=== PATIENT | female | born 1960 | race Caucasian/White ===

== ENCOUNTER → 2016-10-11 | Outpatient (CLI) | payer BC ==
--- NOTE | 2016-10-14 13:08 | MM ---
Reason for exam: screening (asymptomatic). Last mammogram was performed 1 year and 2 months ago. History: Patient is postmenopausal. Right US Cyst Aspiration of the right breast, May 15, 2010. Excisional biopsy of the left breast, 1999. Physical Findings: A clinical breast exam by your physician is recommended on an annual basis and results should be correlated with mammographic findings. MG Screening Mammo w CAD Bilateral CC and MLO view(s) were taken. Prior study comparison: August 18, 2015, right breast MG 3d work up w/cad RT. August 04, 2015, bilateral MG screening mammo w CAD. July 22, 2014, mammogram, performed at [facility]. The breast tissue is heterogeneously dense. This may lower the sensitivity of mammography. Finding: There is a typically benign stable 8mm equal density (isodense), round mass in the right breast. There is a new 6mm round density 12 o'clock, 6cm from nipple. May have been present 07/22/14. New finding since July 22, 2014, August 18, 2015, and August 04, 2015. ASSESSMENT: Incomplete: need additional imaging evaluation, BI-RAD 0 RECOMMENDATION: Special view mammogram of the right breast. [facility] will attempt to contact patient to return for supplemental views.
== END | disposition home or self-care (01) ==
LOC: RADMAMWWP 14:52
PROVIDERS: ATTEND Family Medicine
DX: Z12.31 Encounter for screening mammogram for malignant neoplasm of breast (principal); R92.2 Inconclusive mammogram

== ENCOUNTER → 2016-10-18 | Outpatient (CLI) | payer BC ==
--- NOTE | 2016-10-21 08:27 | MM ---
Reason for exam: additional evaluation requested from abnormal screening. Last mammogram was performed less than 1 month ago. History: Patient is postmenopausal. Right US Cyst Aspiration of the right breast, May 15, 2010. Excisional biopsy of the left breast, 1999. Physical Findings: Nurse did not find any significant physical abnormalities on exam. MG 3D Work Up W/Cad RT LM and spot compression CC view(s) were taken of the right breast. Prior study comparison: October 11, 2016, bilateral MG screening mammo w CAD. August 18, 2015, right breast MG 3d work up w/cad RT. There are scattered fibroglandular densities. Finding: There is a 11 mm equal density (isodense), oval mass in the 10 o'clock position of the right breast. No significant changes in finding since 2012. These results were verbally communicated with the patient and result sheet given to the patient on 10/18/16. ASSESSMENT: Incomplete: need additional imaging evaluation, BI-RAD 0 RECOMMENDATION: Ultrasound of the right breast.
--- NOTE | 2016-10-21 08:28 | USB ---
Reason for exam: additional evaluation requested from abnormal screening. History: Patient is postmenopausal. Right US Cyst Aspiration of the right breast, May 15, 2010. Excisional biopsy of the left breast, 1999. US Breast Workup Limited RT Right breast ultrasound demonstrates a 1.0 x 0.5 x 1.0cm oval, hypoechoic lesion at 10 o'clock. These results were verbally communicated with the patient and result sheet given to the patient on 10/18/16. ASSESSMENT: Probably benign, BI-RAD 3 RECOMMENDATION: Ultrasound of the right breast in 6 months.
== END | disposition home or self-care (01) ==
LOC: RADMAMWWP 13:53
PROVIDERS: ATTEND Family Medicine
DX: R92.8 Other abnormal and inconclusive findings on diagnostic imaging of breast (principal)
CPT/HCPCS: 76642; G0206; G0279

== ENCOUNTER → 2017-05-16 | Day surgery (SDC) | payer BC ==
[2017-05-16 10:48] VITALS: RESP 15; TEMP 98.4; BMI 23.3
[2017-05-16 12:48] VITALS: BP 131/83; PULSE 60
--- NOTE | 2017-05-16 13:00 | USB ---
EXAMINATION TYPE: US biopsy breast VAD RT DATE OF EXAM: 05/16/2017 CLINICAL HISTORY: R92.8 Abnormal Mammogram. Abnormal ultrasound. TECHNIQUE: Ultrasound guided core biopsy of right breast. COMPARISON: 05/02/2017 FINDINGS: The procedure of ultrasound guided core biopsy was explained to the patient. Benefits, alternatives, and risks were discussed. An informed consent was then obtained. A timeout was performed. The patient was placed in supine positioning for imaging and for the procedure. The overlying skin was prepped and draped in usual sterile fashion. Lidocaine was used as anesthetic into the skin and subcutaneous tissue up to area of concern in the right breast. A merle was made with surgical scalpel. Under ultrasound guidance, a 12-gauge vacuum assisted biopsy gun device was used to obtain 6 core samples. Following this, a biopsy clip was left in lesion. The patient tolerated the procedure well without any immediate complication. The patient was kept in the radiology department for short stay after the procedure and then discharged home in stable condition. Post procedure mammogram ordered by the physician was performed. IMPRESSION: Successful, uncomplicated ultrasound guided core biopsy of area of concern in the right breast. Recommendations: 1. Recommendations are pending pathology results. Pathology Results: Benign BREAST, RIGHT, ULTRASOUND GUIDED CORE BIOPSY: FIBROCYSTIC CHANGE (FIBROSIS, CYST FORMATION, AND DUCT HYPERPLASIA). Recommendation Follow up ultrasound of the right breast. [facility]
--- NOTE | 2017-05-16 13:40 | MM ---
Reason for exam: additional evaluation requested from abnormal screening. Last mammogram was performed 7 months ago. History: Patient is postmenopausal. Right US Cyst Aspiration of the right breast, May 15, 2010. Excisional biopsy of the left breast, 1999. MG Diagnostic Mammo RT Wo CAD CC and MLO view(s) were taken of the right breast. Prior study comparison: October 18, 2016, right breast MG 3d work up w/cad RT. October 11, 2016, bilateral MG screening mammo w CAD. ASSESSMENT: Post procedure mammogram for marker placement RECOMMENDATION: Ultrasound of the right breast in 6 months. PENDING PATHOLOGY RESULTS.
== END ==
LOC: RADUSWWP 10:21
PROVIDERS: ATTEND Surgery
DX: N60.31 Fibrosclerosis of right breast (principal); N60.01 Solitary cyst of right breast; R92.8 Other abnormal and inconclusive findings on diagnostic imaging of breast; Z88.0 Allergy status to penicillin; Z88.2 Allergy status to sulfonamides
CPT/HCPCS: 88305; 19083; G0206; A4648; J2001

== ENCOUNTER → 2017-11-28 | Outpatient (CLI) | payer BC ==
--- NOTE | 2017-12-02 10:36 | USB ---
Reason for exam: follow-up at short interval from prior study. History: Patient is postmenopausal. Benign US biopsy breast VAD RT of the right breast, May 16, 2017. Right US Cyst Aspiration of the right breast, May 15, 2010. Excisional biopsy of the left breast, 1999. Physical Findings: Nurse did not find any significant physical abnormalities on exam. US Breast RT Right complete breast ultrasound includes all four quadrants, the retroareolar region and axilla. Finding demonstrates a 0.3 x 0.3 x 0.3cm mixed, stable lesion at 12 o'clock, a 1.1 x 0.5 x 1.0cm hypoechoic, stable lesion at 10 o'clock and a 0.3 x 0.2 x 0.4cm hypoechoic, stable lesion at 10 o'clock. These results were verbally communicated with the patient and result sheet given to the patient on 11/28/17. ASSESSMENT: Benign, BI-RAD 2 RECOMMENDATION: Routine screening mammogram of both breasts in 6 months.
== END | disposition home or self-care (01) ==
LOC: RADUSWWP 09:51
PROVIDERS: ATTEND Family Medicine
DX: R92.8 Other abnormal and inconclusive findings on diagnostic imaging of breast (principal)

== ENCOUNTER → 2018-05-22 | Outpatient (CLI) | payer BC ==
--- NOTE | 2018-05-25 07:01 | MM ---
Reason for exam: screening (asymptomatic). Last mammogram was performed 1 year ago. History: Patient is postmenopausal. Benign US biopsy breast VAD RT of the right breast, May 16, 2017. Right US Cyst Aspiration of the right breast, May 15, 2010. Excisional biopsy of the left breast, 1999. Physical Findings: A clinical breast exam by your physician is recommended on an annual basis and results should be correlated with mammographic findings. MG 3D Screening Mammo W/Cad Bilateral CC and MLO view(s) were taken. Prior study comparison: May 16, 2017, right breast MG diagnostic mammo RT wo CAD. October 18, 2016, right breast MG 3d work up w/cad RT. The breast tissue is heterogeneously dense. This may lower the sensitivity of mammography. Previous mammotome biopsy in the right breast. There is chronic nodularity bilaterally. No significant changes when compared with prior studies. ASSESSMENT: Benign, BI-RAD 2 RECOMMENDATION: Routine screening mammogram of both breasts in 1 year.
== END ==
LOC: RADMAMWWP 13:26
PROVIDERS: ATTEND Family Medicine
DX: Z12.31 Encounter for screening mammogram for malignant neoplasm of breast (principal)
CPT/HCPCS: 77063; 77067

== ENCOUNTER → 2019-06-11 | Outpatient (CLI) | payer BC ==
--- NOTE | 2019-06-14 11:16 | MM ---
Reason for exam: screening (asymptomatic). Last mammogram was performed 1 year and 1 month ago. History: Patient is postmenopausal and history of other cancer. Benign US biopsy breast VAD RT of the right breast, May 16, 2017. Right US Cyst Aspiration of the right breast, May 15, 2010. Excisional biopsy of the left breast, 1999. Physical Findings: A clinical breast exam by your physician is recommended on an annual basis and results should be correlated with mammographic findings. MG 3D Screening Mammo W/Cad Bilateral CC and MLO view(s) were taken. Prior study comparison: May 22, 2018, bilateral MG 3d screening mammo w/cad. May 16, 2017, right breast MG diagnostic mammo RT wo CAD. The breast tissue is heterogeneously dense. This may lower the sensitivity of mammography. There are benign appearing oval stable bilateral upper outer quadrant masses back to 2016, 1cm on the right and 0.5cm on the left. No suspicious abnormality. No significant changes when compared with prior studies. ASSESSMENT: Benign, BI-RAD 2 RECOMMENDATION: Routine screening mammogram of both breasts in 1 year.
== END | disposition home or self-care (01) ==
LOC: RADMAMWWP 09:21
PROVIDERS: ATTEND Family Medicine
DX: Z12.31 Encounter for screening mammogram for malignant neoplasm of breast (principal)
CPT/HCPCS: 77063; 77067